=== PATIENT | male | born 1940 ===

== ENCOUNTER 2017-09-24 22:45 | Inpatient (IN) | payer MEDICARE, OTHER ==
[~2017-09-24] VITALS: Ht 175.3 cm; Wt 107.4 kg
[2017-09-24 23:27] LABS: BASOPHILS # (AUTO) 0.04 x10^3/uL (0-0.1); BASOPHILS % (AUTO) 1 % (0-1); EOSINOPHILS # (AUTO) 0.26 x10^3/uL (0-0.4); EOSINOPHILS % (AUTO) 3 % (1-7); LYMPHOCYTES # (AUTO) 1.55 x10^3/uL (1-3.4); LYMPHOCYTES % (AUTO) 18 % (22-44); MD NO; MEAN CORPUSCULAR HEMOGLOBIN 29.7 pg (27.5-34.5); MEAN CORPUSCULAR HGB CONC 33.7 g/dL (33.2-36.2); MEAN CORPUSCULAR VOLUME 88.3 fL (81-97); MEAN PLATELET VOLUME 7.5 fL (7.4-10.4); MONOCYTES # (AUTO) 0.89 x10^3/uL (0.2-0.8); MONOCYTES % (AUTO) 10 % (2-9); NEUTROPHILS # (AUTO) 5.96 x10^3/uL (1.8-6.8); NEUTROPHILS % (AUTO) 69 % (42-75); PLATELET COUNT 203 x10^3/uL (130-400); RED BLOOD COUNT 4.92 x10^6/uL (4.38-5.82); RED CELL DISTRIBUTION WIDTH 15.9 % (9.4-14.8)
[2017-09-24] MEDS ORDERED: SODIUM CHLORIDE FLUSH 10ML SYR IVF ONE (23:30)
[2017-09-24 23:39] LABS: ALANINE AMINOTRANSFERASE 19 U/L (12-78); ALBUMIN 3.6 g/dL (3.4-5.0); ANION GAP 7 mmol/L (5-15); CALCIUM 9.5 mg/dL (8.5-10.1); CHLORIDE 98 mmol/L (98-107); CREATININE 1.66 mg/dL (0.7-1.3)
[2017-09-24] MEDS ORDERED: CARV-39 PO (23:39)
[2017-09-24] MEDS ORDERED: POTA20TA89 PO (23:39)
[2017-09-24] MEDS ORDERED: INSU100V8 SQ (23:39)
[2017-09-24] MEDS ORDERED: METF500T5 PO (23:39)
[2017-09-24] MEDS ORDERED: FURO80TA77 PO (23:39)
[2017-09-24] MEDS ORDERED: SPIR25TA5 PO (23:39)
[2017-09-24 23:42] LABS: INTERNATIONAL NORMALIZED RATIO 1.05 (0.93-1.1); PROTHROMBIN TIME 10.8 Seconds (9.6-11.5)
[2017-09-24 23:43] LABS: ALKALINE PHOSPHATASE 72 U/L (45-117); TROPONIN I 0.059 ng/mL (0.000-0.045)
[2017-09-25] MEDS ORDERED: FUROSEMIDE 40 MG/4 ML IV ONE
[2017-09-25] MEDS ORDERED: FUROSEMIDE 40 MG/4 ML ONE (00:10)
[2017-09-25] MEDS ORDERED: ONDANSETRON ODT 4 MG PO PRN (01:00)
[2017-09-25] MEDS ORDERED: ACETAMINOPHEN 325 MG TABLET PO PRN (01:00)
[2017-09-25] MEDS ORDERED: ONDANSETRON 2MG/ML, 2ML IVPush PRN (01:00)
[2017-09-25 01:15] LABS: HEMOGLOBIN A1C 7.8 % (4.2-6.3)
[2017-09-25 01:17] VITALS: BP 111/79
[2017-09-25 01:20] VITALS: BP 111/79
[2017-09-25] MEDS: HEPARIN 5,000 UNITS/ML, 1ML SQ SCH ×4 (01:50→23:29)
[2017-09-25 02:00] LABS: TROPONIN I 0.066 ng/mL (0.000-0.045)
[2017-09-25] MEDS ORDERED: INSULIN LISPRO 100 UNITS/ML, PEN SQ-INSULIN ONE (02:00)
[2017-09-25 07:37] LABS: TROPONIN I 0.062 ng/mL (0.000-0.045)
[2017-09-25 07:39] VITALS: BP 118/85
[2017-09-25] MEDS ORDERED: POTASSIUM CHLORIDE 20 MEQ TAB.ER.PRT PO SCH (08:00)
[2017-09-25] MEDS: FUROSEMIDE 40 MG/4 ML IV SCH ×3 (08:14→17:21)
[2017-09-25] MEDS: SPIRONOLACTONE 25 MG TABLET PO SCH (08:14)
[2017-09-25] MEDS: CARVEDILOL 6.25 MG TABLET PO SCH ×2 (08:16→20:40)
[2017-09-25] MEDS ORDERED: TEMPLATE NON-FORMULARY MED. (Carvedilol** 25 MG) PO SCH (09:00)
[2017-09-25] MEDS: INSULIN LISPRO 100 UNITS/ML, PEN SQ-INSULIN SCH ×4 (09:27→20:45)
[2017-09-25 14:16] VITALS: BP 100/71
[2017-09-25] MEDS ORDERED: CHOL100015 PO (15:29)
[2017-09-25] MEDS ORDERED: NIACIN (15:35)
[2017-09-25] MEDS ORDERED: METO5TAB5 PO (15:35)
[2017-09-25] MEDS ORDERED: ACAR100T9 PO (15:35)
[2017-09-25] MEDS ORDERED: METF500T5 PO (15:35)
[2017-09-25] MEDS ORDERED: PHARMACY MAY ADJ FOR RENAL FX MC PRN (16:30)
[2017-09-25 20:00] VITALS: BP 102/69
[2017-09-25] MEDS ORDERED: MELATONIN 3 MG TABLET PO PRN (20:30)
[2017-09-25] MEDS: DIPHENHYDRAMINE 25 MG CAPSULE PO PRN (20:40)
[2017-09-25] MEDS ORDERED: INSULIN GLARGINE 100 UNITS/ML, PEN SQ-INSULIN SCH (21:00)
[2017-09-26 03:45] VITALS: BP 116/81
[2017-09-26 05:48] LABS: BASOPHILS # (AUTO) 0.04 x10^3/uL (0-0.1); BASOPHILS % (AUTO) 1 % (0-1); EOSINOPHILS % (AUTO) 4 % (1-7); LYMPHOCYTES # (AUTO) 1.47 x10^3/uL (1-3.4); LYMPHOCYTES % (AUTO) 18 % (22-44); MD NO; MEAN CORPUSCULAR HEMOGLOBIN 29.6 pg (27.5-34.5); MEAN CORPUSCULAR HGB CONC 33.4 g/dL (33.2-36.2); MEAN CORPUSCULAR VOLUME 88.5 fL (81-97); MEAN PLATELET VOLUME 7.9 fL (7.4-10.4); MONOCYTES # (AUTO) 0.65 x10^3/uL (0.2-0.8); MONOCYTES % (AUTO) 8 % (2-9); NEUTROPHILS # (AUTO) 5.93 x10^3/uL (1.8-6.8); NEUTROPHILS % (AUTO) 71 % (42-75); PLATELET COUNT 205 x10^3/uL (130-400); RED CELL DISTRIBUTION WIDTH 15.6 % (9.4-14.8)
[2017-09-26 05:56] LABS: ANION GAP 10 mmol/L (5-15); CALCIUM 9.9 mg/dL (8.5-10.1); CHLORIDE 92 mmol/L (98-107); CHOLESTEROL, TOTAL 136 mg/dL (140-239); CREATININE 1.74 mg/dL (0.7-1.3); TRIGLYCERIDES 228 mg/dL (50-200); VLDL CHOLESTEROL 46 mg/dL (0-25)
[2017-09-26 05:58] LABS: CHOL/HDL RATIO 3.6; HDL CHOL % 28 % (26-37); HDL CHOLESTEROL (DIRECT) 38 mg/dL (40-60); LDL CHOLESTEROL,CALCULATED 52 mg/dL (54-169); LDL/HDL RATIO 1.4 (0.5-3.0)
[2017-09-26 07:31] VITALS: BP 106/67
[2017-09-26] MEDS ORDERED: POTASSIUM CHLORIDE 20 MEQ TAB.ER.PRT PO SCH (09:00)
[2017-09-26] MEDS: INSULIN LISPRO 100 UNITS/ML, PEN SQ-INSULIN SCH ×4 (09:21→20:02)
[2017-09-26] MEDS: FUROSEMIDE 40 MG/4 ML IV SCH ×2 (09:21→16:41)
[2017-09-26] MEDS: SPIRONOLACTONE 25 MG TABLET PO SCH (09:22)
[2017-09-26] MEDS: CARVEDILOL 6.25 MG TABLET PO SCH (09:28)
[2017-09-26] MEDS: HEPARIN 5,000 UNITS/ML, 1ML SQ SCH ×2 (09:28→16:41)
[2017-09-26] MEDS ORDERED: ZOLPIDEM 5MG TABLET PO PRN (13:30)
[2017-09-26 14:16] VITALS: BP 118/86
[2017-09-26] MEDS: ACARBOSE 50 MG TABLET PO SCH (16:42)
[2017-09-26 19:56] VITALS: BP 101/68
[2017-09-26] MEDS: CARVEDILOL 12.5 MG TABLET PO SCH (19:59)
[2017-09-26] MEDS: MELATONIN 3 MG TABLET PO SCH (19:59)
[2017-09-26] MEDS ORDERED: INSULIN GLARGINE 100 UNITS/ML, PEN SQ-INSULIN SCH (21:00)
[2017-09-27] MEDS: DIPHENHYDRAMINE 25 MG CAPSULE PO PRN (00:13)
[2017-09-27] MEDS: HEPARIN 5,000 UNITS/ML, 1ML SQ SCH ×3 (00:13→16:56)
[2017-09-27 00:25] VITALS: BP 102/68
[2017-09-27 05:49] LABS: CHLORIDE 92 mmol/L (98-107)
[2017-09-27 06:02] LABS: ANION GAP 10 mmol/L (5-15); CALCIUM 10.3 mg/dL (8.5-10.1); CREATININE 1.63 mg/dL (0.7-1.3)
[2017-09-27] MEDS: ASPIRIN 81 MG TABLET EC PO SCH (06:41)
[2017-09-27] MEDS: METOLAZONE 5 MG TABLET PO SCH (06:41)
[2017-09-27 08:33] VITALS: BP 103/72
[2017-09-27] MEDS: INSULIN LISPRO 100 UNITS/ML, PEN SQ-INSULIN SCH ×4 (08:43→21:24)
[2017-09-27] MEDS: ACARBOSE 50 MG TABLET PO SCH ×3 (08:44→16:54)
[2017-09-27] MEDS: CARVEDILOL 12.5 MG TABLET PO SCH ×2 (08:45→21:25)
[2017-09-27 10:28] VITALS: BP 103/69
[2017-09-27] MEDS: FUROSEMIDE 40 MG/4 ML IV SCH ×2 (10:29→16:54)
[2017-09-27] MEDS: SPIRONOLACTONE 25 MG TABLET PO SCH (10:29)
[2017-09-27] MEDS ORDERED: POTASSIUM CHLORIDE 20 MEQ TAB.ER.PRT ONE (11:15)
[2017-09-27] MEDS: POTASSIUM CHLORIDE 20 MEQ TAB.ER.PRT PO SCH ×2 (11:40→16:54)
[2017-09-27] MEDS ORDERED: ZOLPIDEM 5MG TABLET PO PRN (13:30)
[2017-09-27 14:40] VITALS: BP 113/69
[2017-09-27] MEDS ORDERED: POTASSIUM CHLORIDE 20 MEQ TAB.ER.PRT PO SCH (17:00)
[2017-09-27 18:55] VITALS: BP 105/72
[2017-09-27] MEDS ORDERED: INSULIN GLARGINE 100 UNITS/ML, PEN SQ-INSULIN SCH (21:00)
[2017-09-27] MEDS: FLUTICASONE NASAL SPRAY 16GM NAS SCH (21:23)
[2017-09-27] MEDS: SODIUM CHLORIDE NASAL SPRAY 45ML BOTTLE NAS SCH (21:23)
[2017-09-27] MEDS: MELATONIN 3 MG TABLET PO SCH (21:25)
[2017-09-28 01:28] VITALS: BP 99/69
[2017-09-28] MEDS: HEPARIN 5,000 UNITS/ML, 1ML SQ SCH ×2 (01:47→08:27)
[2017-09-28 05:04] LABS: CHLORIDE 91 mmol/L (98-107)
[2017-09-28 05:11] LABS: ALANINE AMINOTRANSFERASE 16 U/L (12-78); ALKALINE PHOSPHATASE 58 U/L (45-117); ANION GAP 9 mmol/L (5-15); BILIRUBIN,TOTAL 1.7 mg/dL (0.2-1.0); CREATININE 1.96 mg/dL (0.7-1.3); TOTAL PROTEIN 7.7 g/dL (6.4-8.2)
[2017-09-28 06:35] VITALS: BP 106/70
[2017-09-28] MEDS: METOLAZONE 5 MG TABLET PO SCH (06:40)
[2017-09-28] MEDS: ASPIRIN 81 MG TABLET EC PO SCH (06:40)
[2017-09-28] MEDS: FLUTICASONE NASAL SPRAY 16GM NAS SCH (07:50)
[2017-09-28] MEDS: SODIUM CHLORIDE NASAL SPRAY 45ML BOTTLE NAS SCH (07:51)
[2017-09-28] MEDS: SPIRONOLACTONE 25 MG TABLET PO SCH (08:27)
[2017-09-28] MEDS: ACARBOSE 50 MG TABLET PO SCH ×2 (08:27→12:26)
[2017-09-28] MEDS: CARVEDILOL 12.5 MG TABLET PO SCH (08:27)
[2017-09-28] MEDS: INSULIN LISPRO 100 UNITS/ML, PEN SQ-INSULIN SCH ×3 (08:27→16:29)
[2017-09-28] MEDS ORDERED: ISOSORBIDE DINITRATE 20 MG TABLET PO SCH (09:00)
[2017-09-28] MEDS ORDERED: ISOSORBIDE DINITRATE 10 MG TABLET ONE (10:13)
[2017-09-28 10:18] VITALS: BP 107/71
[2017-09-28 15:14] VITALS: BP 101/66
[2017-09-28] MEDS ORDERED: ISOS20TA58 PO (15:50)
[2017-09-28] MEDS ORDERED: HYDR-3342 PO (15:50)
== END 2017-09-28 17:06 | disposition home or self-care (01) | DRG 682 ==
LOC: ED 23:59 → EDIP 09-25 00:05 → 5SO 09-25 01:12
PROVIDERS: ADMIT Hospitalist; ATTEND Family Medicine
DX: N17.9 Acute kidney failure, unspecified (principal); J96.01 Acute respiratory failure with hypoxia; I50.23 Acute on chronic systolic (congestive) heart failure; E87.1 Hypo-osmolality and hyponatremia; I24.8 Other forms of acute ischemic heart disease; I42.9 Cardiomyopathy, unspecified; I11.0 Hypertensive heart disease with heart failure; E87.6 Hypokalemia; E11.65 Type 2 diabetes mellitus with hyperglycemia; G47.33 Obstructive sleep apnea (adult) (pediatric); J44.9 Chronic obstructive pulmonary disease, unspecified; I27.20 Pulmonary hypertension, unspecified; E78.1 Pure hyperglyceridemia; E66.01 Morbid (severe) obesity due to excess calories; I08.3 Combined rheumatic disorders of mitral, aortic and tricuspid valves; G47.00 Insomnia, unspecified; Z95.810 Presence of automatic (implantable) cardiac defibrillator; Z90.49 Acquired absence of other specified parts of digestive tract; Z87.891 Personal history of nicotine dependence; Z91.19 Patient's noncompliance with other medical treatment and regimen; Z68.35 Body mass index [BMI] 35.0-35.9, adult
CPT/HCPCS: 36415; 71045; 76770; 80048; 80053; 80061; 82330; 82962; 83036; 83735; 83880; 84100; 84484; 85025; 85610; 85730; 93005; 96374; 99285; C8929; J1644; J1940; J1815; Q0163